=== PATIENT | female | born 1945 | race Caucasian/White ===

== ENCOUNTER 2017-11-06 05:57 | Inpatient (IN) | payer MEDICARE, MEDICAID ==
[2017-10-31 16:02] LABS: BASOPHILS # (AUTO) 0.1 X10'3 (0-0.2); BASOPHILS % (AUTO) 0.5 % (0-1); EOSINOPHILS # (AUTO) 0.6 X10'3 (0-0.9); EOSINOPHILS % (AUTO) 6.2 % (0-6); LYMPHOCYTES # (AUTO) 2.2 X10'3 (1.1-4.8); LYMPHOCYTES % (AUTO) 23.9 % (21-51); MEAN CORPUSCULAR HEMOGLOBIN 28.8 PG (27.0-31.0); MEAN CORPUSCULAR HGB CONC 32.8 % (33.0-36.5); MEAN CORPUSCULAR VOLUME 87.8 FL (78-98); MEAN PLATELET VOLUME 7.9 FL (7.4-10.4); MONOCYTES # (AUTO) 0.6 X10'3 (0-0.9); MONOCYTES % (AUTO) 6.1 % (2-12); NEUTROPHILS # (AUTO) 5.8 X10'3 (1.8-7.7); NEUTROPHILS % (AUTO) 63.3 % (42-75); PRE OP HEMATOCRIT 41.5 % (35.0-45.0); PRE OP HEMOGLOBIN 13.6 g/dL (12.0-16.0); PRE OP PLATELET COUNT 206 X10'3 (140-440); RED BLOOD COUNT 4.73 X10'6 (4.20-5.60); RED CELL DISTRIBUTION WIDTH 13.2 % (11.5-14.5)
[2017-10-31 16:16] LABS: PRE OP PROTIME 33.9 SECONDS (9.0-12.0)
[2017-10-31 16:18] LABS: ALBUMIN 3.6 G/DL (3.4-5.0); ALKALINE PHOSPHATASE 46 IU/L (46-116); BLOOD UREA NITROGEN 15 MG/DL (7-18); BUN/CREATININE RATIO 10.7 (6.6-38.0); CALCIUM 8.8 MG/DL (8.5-10.1); CHLORIDE 109 MMOL/L (99-107); PRE OP ALT 20 U/L (30-65); PRE OP ANION GAP 10 (8-16); PRE OP AST 23 U/L (10-37); PRE OP BILIRUB, TOTAL 0.3 MG/DL (0.0-1.0); PRE OP GLUCOSE 83 MG/DL (70-104); PRE OP POTASSIUM 3.6 MMOL/L (3.4-5.1); PRE OP SODIUM 144 MMOL/L (135-145); TOTAL CARBON DIOXIDE 25.1 MMOL/L (24-32); TOTAL PROTEIN 7.1 G/DL (6.4-8.2); eGFR 37 ML/MIN
[2017-10-31 16:18] LABS: CLARITY,URINE CLEAR (Clear); GLUCOSE, URINE NEGATIVE (Neg); KETONES,URINE NEGATIVE (Neg); LEUKOCYTE ESTERASE ,URINE MODERATE (Neg); NITRITES, URINE NEGATIVE (Neg); OCCULT BLOOD,URINE SMALL (Neg); PH,URINE 6.5 (4.8-8.0); PROTEIN,URINE NEGATIVE (Neg); UROBILINOGEN,URINE 0.2 E.U/dL (0.2-1.0)
[2017-10-31 16:23] LABS: COLOR,URINE STRAW (Yellow)
[2017-10-31 16:25] LABS: UA COLLECTION TYPE CLN CATCH MIDSTREAM
[2017-10-31 16:34] LABS: PRE OP INR 3.4 INR
[2017-10-31 16:37] LABS: BACTERIA,URINE NONE SEEN /HPF (Neg); SQUAMOUS EPITHELIAL CELL,UR FEW /LPF (FEW)
[2017-11-06] VITALS (22 sets, daily range): BP systolic 90–129; BP diastolic 43–68
[~2017-11-06] VITALS: Ht 167.6 cm; Wt 69.8 kg
[~2017-11-06 05:57] MED LIST: DABI150C PO; DRON400T2 PO; LEVO50TA8 PO; ROSU10TA PO; TAMO20TA4 PO; acetaminophen 325mg tablet PO ONE; ceFAZolin 2gm in dextrose, iso 100 ML IV ONE; celeCOXIB 100mg capsule PO ONE; famotidine 20mg tablet PO ONE; gabapentin 300mg capsule PO ONE; metoclopramide 5 mg/ml inj IV ONE; ringers solution, lacted 1,000 ML IV SCH; vancomycin inj 1,500 MG in normal saline 300ml IV soln IV ONE
[2017-11-06] MEDS ORDERED: LIDOcaine 1% (10mg/ml) 2ml vial ONE (06:24)
[2017-11-06] MEDS ORDERED: vancomycin 1,000mg inj ONE (07:16)
[2017-11-06] MEDS ORDERED: ceFAZolin 1000mg inj ONE (07:16)
[2017-11-06 07:27] LABS: INR 0.9 INR; PARTIAL THROMBOPLASTIN TIME 24 SECONDS (22-32); PROTHROMBIN TIME 9.6 SECONDS (9.0-12.0)
[2017-11-06] MEDS ORDERED: cloNIDine hcl/PF 100mcg/ml inj ONE (07:38)
[2017-11-06] MEDS ORDERED: MORPHINE SULFATE/PF 0.5 MG/ML 10ML AMPUL ONE (07:57)
[2017-11-06] MEDS ORDERED: MIDAZolam 1mg/ml 10ml vial ONE (07:57)
[2017-11-06] MEDS ORDERED: naloxone 2mg/2ml inj 1.4 MG in normal saline 500ml IV soln 500 ML IV PRN (08:54)
[2017-11-06] MEDS ORDERED: ringers solution, lacted 1,000 ML IV SCH (08:54)
[2017-11-06] MEDS ORDERED: proCHLORperazine 10 MG/2 ml inj IV PRN (08:55)
[2017-11-06] MEDS ORDERED: meperidine/PF 25mg/ml syringe IV ONE (08:55)
[2017-11-06] MEDS ORDERED: morphine 2 MG/ML inj. syringe IV PRN (08:55)
[2017-11-06] MEDS ORDERED: ondansetron/PF 4mg/2ml inj IV PRN ×3 (08:55→09:50)
[2017-11-06] MEDS ORDERED: meperidine/PF 25mg/ml syringe IV PRN ×2 (08:55)
[2017-11-06] MEDS ORDERED: diphenhydrAMINE 50 mg/ml inj IV PRN (08:55)
[2017-11-06] MEDS ORDERED: propofol inj 20 ML IV ONE (09:04)
[2017-11-06] MEDS ORDERED: epiNEPHrine 1 mg/ml inj ONE (09:04)
[2017-11-06] MEDS ORDERED: ePHEDrine 50MG/ML INJ. ONE (09:22)
[2017-11-06] MEDS ORDERED: acetaminophen 325mg tablet PO PRN (09:50)
[2017-11-06] MEDS ORDERED: magnesium hydroxide 30ml (MOM) UD suspension PO PRN (09:50)
[2017-11-06] MEDS ORDERED: oxyCODONE IR 5mg (immed. release) tablet PO PRN (09:50)
[2017-11-06] MEDS ORDERED: bisacodyl 10mg suppository rectal RC PRN (09:50)
[2017-11-06] MEDS ORDERED: dexamethasone sod phosphate 4mg/ml inj. ONE (09:55)
[2017-11-06] MEDS: acetaminophen 325mg tablet PO SCH ×2 (14:28→20:57)
[2017-11-06] MEDS: potassium cl 20mEq in 1/2 NS 1,000 ML IV SCH ×2 (14:29→17:49)
[2017-11-06] MEDS: gabapentin 300mg capsule PO SCH ×2 (14:29→20:58)
[2017-11-06] MEDS: ketorolac tromethamine 15mg/ml inj. IV SCH ×2 (14:29→20:58)
[2017-11-06] MEDS: cefazolin 1gm/NS 100mL 100 ML IV SCH (17:32)
[2017-11-06] MEDS ORDERED: vancomycin/NS 1 GM ADD-VANTAGE 250 ML IV SCH (20:00)
[2017-11-06] MEDS: sennosides 8.6mg tablet PO SCH (20:58)
[2017-11-06] MEDS: atorvastatin 20mg tablet PO SCH (20:58)
[2017-11-07] MEDS: cefazolin 1gm/NS 100mL 100 ML IV SCH (00:33)
[2017-11-07] MEDS: potassium cl 20mEq in 1/2 NS 1,000 ML IV SCH ×3 (01:49→16:14)
[2017-11-07] MEDS: ketorolac tromethamine 15mg/ml inj. IV SCH ×4 (02:15→20:10)
[2017-11-07] MEDS: acetaminophen 325mg tablet PO SCH ×4 (02:15→20:44)
[2017-11-07 02:30] VITALS: BP_SYST 112; BP_DIAS 58; BP_DIAS 71
[2017-11-07] MEDS: oxyCODONE IR 5mg (immed. release) tablet PO PRN (05:39)
[2017-11-07 06:00] VITALS: BP 96/44
[2017-11-07 06:21] LABS: BASOPHILS % (AUTO) 0 % (0-1); EOSINOPHILS # (AUTO) 0.2 X10'3 (0-0.9); EOSINOPHILS % (AUTO) 1.6 % (0-6); HEMATOCRIT 29.7 % (35.0-45.0); HEMOGLOBIN 10.3 g/dl (12.0-16.0); LYMPHOCYTES # (AUTO) 0.6 X10'3 (1.1-4.8); LYMPHOCYTES % (AUTO) 5.1 % (21-51); MEAN CORPUSCULAR HEMOGLOBIN 29.9 PG (27.0-31.0); MEAN CORPUSCULAR HGB CONC 34.6 % (33.0-36.5); MEAN CORPUSCULAR VOLUME 86.3 FL (78-98); MEAN PLATELET VOLUME 7.9 FL (7.4-10.4); MONOCYTES # (AUTO) 0.6 X10'3 (0-0.9); MONOCYTES % (AUTO) 5.4 % (2-12); NEUTROPHILS # (AUTO) 9.9 X10'3 (1.8-7.7); NEUTROPHILS % (AUTO) 87.9 % (42-75); PLATELET COUNT 138 X10'3 (140-440); RED BLOOD COUNT 3.44 X10'6 (4.20-5.60); RED CELL DISTRIBUTION WIDTH 12.8 % (11.5-14.5); WHITE BLOOD COUNT 11.3 X10'3 (4.5-11.0)
[2017-11-07 06:53] LABS: ANION GAP 7 (8-16); CHLORIDE 105 MMOL/L (99-107); POTASSIUM 5.1 MMOL/L (3.5-5.1); SODIUM 133 MMOL/L (135-145); TOTAL CARBON DIOXIDE 21.2 MMOL/L (24-32)
[2017-11-07] MEDS: enoxaparin 40mg/0.4ml syringe SQ SCH (08:16)
[2017-11-07] MEDS: levoTHYROXINE 25mcg tablet PO SCH (08:18)
[2017-11-07] MEDS: gabapentin 300mg capsule PO SCH ×3 (08:18→20:11)
[2017-11-07] MEDS: tamoxifen 10mg tablet PO SCH (08:20)
[2017-11-07 10:00] VITALS: BP 104/57
[2017-11-07] MEDS: dronedarone hcl 400mg tablet PO SCH ×2 (11:52→20:10)
[2017-11-07 14:00] VITALS: BP 96/57
[2017-11-07 18:00] VITALS: BP 114/42
[2017-11-07] MEDS ORDERED: dronedarone hcl 400mg tablet PO SCH (20:00)
[2017-11-07] MEDS: sennosides 8.6mg tablet PO SCH (20:11)
[2017-11-07] MEDS: atorvastatin 20mg tablet PO SCH (20:11)
[2017-11-07 22:00] VITALS: BP 128/45
[2017-11-08] MEDS: potassium cl 20mEq in 1/2 NS 1,000 ML IV SCH (01:49)
[2017-11-08] MEDS: acetaminophen 325mg tablet PO SCH ×2 (02:20→08:06)
[2017-11-08 06:00] VITALS: BP 110/46
[2017-11-08 06:31] LABS: BASOPHILS % (AUTO) 0.2 % (0-1); EOSINOPHILS # (AUTO) 0.1 X10'3 (0-0.9); EOSINOPHILS % (AUTO) 0.8 % (0-6); HEMATOCRIT 27.5 % (35.0-45.0); HEMOGLOBIN 9.5 g/dl (12.0-16.0); LYMPHOCYTES # (AUTO) 0.9 X10'3 (1.1-4.8); LYMPHOCYTES % (AUTO) 7.9 % (21-51); MEAN CORPUSCULAR HEMOGLOBIN 29.8 PG (27.0-31.0); MEAN CORPUSCULAR HGB CONC 34.6 % (33.0-36.5); MEAN CORPUSCULAR VOLUME 85.9 FL (78-98); MEAN PLATELET VOLUME 8.4 FL (7.4-10.4); MONOCYTES # (AUTO) 0.7 X10'3 (0-0.9); MONOCYTES % (AUTO) 5.9 % (2-12); NEUTROPHILS # (AUTO) 9.9 X10'3 (1.8-7.7); NEUTROPHILS % (AUTO) 85.2 % (42-75); PLATELET COUNT 127 X10'3 (140-440); RED CELL DISTRIBUTION WIDTH 13.1 % (11.5-14.5); WHITE BLOOD COUNT 11.6 X10'3 (4.5-11.0)
[2017-11-08] MEDS: gabapentin 300mg capsule PO SCH ×3 (08:05→20:51)
[2017-11-08] MEDS: levoTHYROXINE 25mcg tablet PO SCH (08:05)
[2017-11-08] MEDS: dronedarone hcl 400mg tablet PO SCH ×2 (08:05→20:50)
[2017-11-08] MEDS: enoxaparin 40mg/0.4ml syringe SQ SCH (08:06)
[2017-11-08] MEDS: tamoxifen 10mg tablet PO SCH (08:07)
[2017-11-08] MEDS: celeCOXIB 100mg capsule PO SCH ×2 (08:07→20:51)
[2017-11-08] MEDS ORDERED: acetaminophen 325mg tablet PO PRN (09:50)
[2017-11-08 10:57] VITALS: BP 111/38
[2017-11-08] MEDS: oxyCODONE IR 5mg (immed. release) tablet PO PRN (12:32)
[2017-11-08 18:00] VITALS: BP 149/59
[2017-11-08] MEDS: sennosides 8.6mg tablet PO SCH (20:51)
[2017-11-08] MEDS: atorvastatin 20mg tablet PO SCH (20:51)
[2017-11-08 22:00] VITALS: BP 145/61
[2017-11-08] MEDS: HYDROcodone/acetaminophen 5mg/325mg tablet PO PRN (22:44)
[2017-11-09] MEDS: HYDROcodone/acetaminophen 5mg/325mg tablet PO PRN ×2 (05:26→11:02)
[2017-11-09 06:00] VITALS: BP 143/61
[2017-11-09 06:39] LABS: BASOPHILS % (AUTO) 0.2 % (0-1); EOSINOPHILS # (AUTO) 0.3 X10'3 (0-0.9); EOSINOPHILS % (AUTO) 2.8 % (0-6); HEMATOCRIT 28.7 % (35.0-45.0); HEMOGLOBIN 9.7 g/dl (12.0-16.0); LYMPHOCYTES % (AUTO) 10.3 % (21-51); MEAN CORPUSCULAR HEMOGLOBIN 29.2 PG (27.0-31.0); MEAN CORPUSCULAR HGB CONC 33.7 % (33.0-36.5); MEAN CORPUSCULAR VOLUME 86.7 FL (78-98); MEAN PLATELET VOLUME 8.4 FL (7.4-10.4); MONOCYTES # (AUTO) 0.6 X10'3 (0-0.9); NEUTROPHILS # (AUTO) 8.2 X10'3 (1.8-7.7); NEUTROPHILS % (AUTO) 80.7 % (42-75); PLATELET COUNT 131 X10'3 (140-440); RED BLOOD COUNT 3.31 X10'6 (4.20-5.60); RED CELL DISTRIBUTION WIDTH 13.2 % (11.5-14.5); WHITE BLOOD COUNT 10.1 X10'3 (4.5-11.0)
[2017-11-09] MEDS: gabapentin 300mg capsule PO SCH (08:00)
[2017-11-09] MEDS: levoTHYROXINE 25mcg tablet PO SCH (08:11)
[2017-11-09] MEDS: celeCOXIB 100mg capsule PO SCH (08:11)
[2017-11-09] MEDS: dronedarone hcl 400mg tablet PO SCH (08:11)
[2017-11-09] MEDS: tamoxifen 10mg tablet PO SCH (08:12)
[2017-11-09] MEDS: enoxaparin 40mg/0.4ml syringe SQ SCH (08:12)
[2017-11-09] MEDS ORDERED: ENOX40DI11 SQ (10:04)
[2017-11-09 10:40] VITALS: BP 129/52
== END 2017-11-09 11:05 | disposition home health service (06) | DRG 470 ==
LOC: PAS IN 05:57 → EDSTATUS 07:30 → ORTHO 4S 12:19
PROVIDERS: ADMIT Orthopaedic Surgery; ATTEND Orthopaedic Surgery
PROC: 0SR906A Replacement of Right Hip Joint with Oxidized Zirconium on Polyethylene Synthetic Substitute, Uncemented, Open Approach (ICD-10-PCS; principal; 2017-11-06 07:50)
DX: M16.11 Unilateral primary osteoarthritis, right hip (principal); I48.2 Chronic atrial fibrillation; E87.1 Hypo-osmolality and hyponatremia; D62 Acute posthemorrhagic anemia; I10 Essential (primary) hypertension; E78.5 Hyperlipidemia, unspecified; I25.10 Atherosclerotic heart disease of native coronary artery without angina pectoris; Z88.8 Allergy status to other drugs, medicaments and biological substances; Z79.899 Other long term (current) drug therapy; Z79.01 Long term (current) use of anticoagulants; Z85.3 Personal history of malignant neoplasm of breast; Z71.3 Dietary counseling and surveillance
CPT/HCPCS: 36415; 72170; 80051; 80053; 81001; 85025; 85610; 85730; 86885; 86900; 86901; 87070; 87088; 97110; 97116; 97161; 97530; A6255; A6449; A7000; C1758; C1776; C9250; J0171; J0690; J0735; J1100; J1650; J1885; J2250; J2274; J2704; J2765; J3370; J3490; J7030; J7120

== ENCOUNTER 2021-02-17 15:36 | Emergency (ER) | payer MEDICARE, MEDICAID ==
[~2021-02-17] VITALS: Ht 167.6 cm; Wt 72.7 kg
[~2021-02-17 15:36] MED LIST changes: -DABI150C PO; -DRON400T2 PO; +DRON400T7 PO; +ENOX40DI11 SQ; -ROSU10TA PO; +ROSU10TA2 PO; -acetaminophen 325mg tablet PO ONE; -ceFAZolin 2gm in dextrose, iso 100 ML IV ONE; -celeCOXIB 100mg capsule PO ONE; -famotidine 20mg tablet PO ONE; -gabapentin 300mg capsule PO ONE; -metoclopramide 5 mg/ml inj IV ONE; -ringers solution, lacted 1,000 ML IV SCH; -vancomycin inj 1,500 MG in normal saline 300ml IV soln IV ONE
[2021-02-17] MEDS ORDERED: TETanus/Pertussis (Acell)/Diphther VAC/PF (Tdap-Adult) 0.5ml syringe IMVAC ONE (17:00)
[2021-02-17] MEDS ORDERED: LIDOcaine 1% 30ml preserv. free vial IJ ONE (17:00)
--- NOTE | 2021-02-17 18:26 | NUR ---
Pt was being discharged. RBN was going to walk pt to lobby. Pt made it to the door of the room and started to go down. RN caught pt by the axillary and called for help. Pt assisted back to otto. VS taken 114/48, 68, 20, 98% RA. Pt a litle clammy. Feeling better now.
--- NOTE | 2021-02-17 19:00 | NUR ---
Pt in bed, calm, denies pain. at rest BP going from 82/47 to 119/53. JAD Bautista notified. 1L NS ordered. Pt denies dizziness and pain. Continue monitoring closely
[2021-02-17] MEDS ORDERED: normal saline 1000ml 1,000 ML IV ONE (19:05)
[2021-02-17 19:24] LABS: BASOPHILS # (AUTO) 0.1 X10'3 (0-0.2); BASOPHILS % (AUTO) 0.6 % (0-1); EOSINOPHILS # (AUTO) 0.2 X10'3 (0-0.9); EOSINOPHILS % (AUTO) 1.3 % (0-6); HEMATOCRIT 37.5 % (35.0-45.0); HEMOGLOBIN 12.2 g/dl (12.0-16.0); LYMPHOCYTES # (AUTO) 1.4 X10'3 (1.1-4.8); LYMPHOCYTES % (AUTO) 10.5 % (21-51); MEAN CORPUSCULAR HEMOGLOBIN 27.3 PG (27.0-31.0); MEAN CORPUSCULAR HGB CONC 32.6 g/dL (33.0-36.5); MEAN CORPUSCULAR VOLUME 83.6 FL (78-98); MEAN PLATELET VOLUME 7.8 FL (7.4-10.4); MONOCYTES # (AUTO) 0.5 X10'3 (0-0.9); MONOCYTES % (AUTO) 4.1 % (2-12); NEUTROPHILS # (AUTO) 11.2 X10'3 (1.8-7.7); NEUTROPHILS % (AUTO) 83.5 % (42-75); PLATELET COUNT 217 X10'3 (140-440); RED BLOOD COUNT 4.48 X10'6 (4.20-5.60); RED CELL DISTRIBUTION WIDTH 14.9 % (11.5-14.5); WHITE BLOOD COUNT 13.4 X10'3 (4.5-11.0)
[2021-02-17 20:16] VITALS: BP 141/56
== END 2021-02-17 20:20 | disposition home or self-care (01) ==
LOC: ER 15:36
DX: S61.411A Laceration without foreign body of right hand, initial encounter (principal); M25.521 Pain in right elbow; E78.00 Pure hypercholesterolemia, unspecified; I10 Essential (primary) hypertension; F41.9 Anxiety disorder, unspecified; Z72.89 Other problems related to lifestyle; Z88.8 Allergy status to other drugs, medicaments and biological substances; Z88.5 Allergy status to narcotic agent; Z79.899 Other long term (current) drug therapy; W01.0XXA Fall on same level from slipping, tripping and stumbling without subsequent striking against object, initial encounter; Y93.89 Activity, other specified; Y92.89 Other specified places as the place of occurrence of the external cause; Y99.8 Other external cause status
CPT/HCPCS: 12002; 36415; 73080; 73090; 73110; 73130; 85025; 90471; 90715; 96360; 99285; J7030; 96361; 96374

== ENCOUNTER 2022-03-08 10:14 | Observation (INO) | payer MEDICARE, MEDICAID ==
[~2022-03-08] VITALS: Ht 167.6 cm; Wt 66.2 kg
[2022-03-08 11:05] LABS: BASOPHILS # (AUTO) 0.1 X10'3 (0-0.2); BASOPHILS % (AUTO) 1.3 % (0-1); EOSINOPHILS # (AUTO) 0.2 X10'3 (0-0.9); EOSINOPHILS % (AUTO) 2.9 % (0-6); HEMATOCRIT 23.6 % (35.0-45.0); HEMOGLOBIN 7.2 g/dl (12.0-16.0); LYMPHOCYTES # (AUTO) 1.8 X10'3 (1.1-4.8); MEAN CORPUSCULAR HEMOGLOBIN 19.8 PG (27.0-31.0); MEAN CORPUSCULAR HGB CONC 30.3 g/dL (33.0-36.5); MEAN CORPUSCULAR VOLUME 65.4 FL (78-98); MEAN PLATELET VOLUME 7.5 FL (7.4-10.4); MONOCYTES # (AUTO) 0.4 X10'3 (0-0.9); MONOCYTES % (AUTO) 5.5 % (2-12); NEUTROPHILS # (AUTO) 4.9 X10'3 (1.8-7.7); NEUTROPHILS % (AUTO) 66.3 % (42-75); PLATELET COUNT 412 X10'3 (140-440); RED BLOOD COUNT 3.62 X10'6 (4.20-5.60); RED CELL DISTRIBUTION WIDTH 18.6 % (11.5-14.5); WHITE BLOOD COUNT 7.4 X10'3 (4.5-11.0)
[2022-03-08 11:21] LABS: PLATELET ESTIMATE NORMAL
[2022-03-08 11:22] LABS: ANISOCYTOSIS 2+; ELLIPTOCYTES 1+; MICROCYTOSIS 2+
[2022-03-08 11:23] LABS: ACANTHOCYTES 1+; HYPOCHROMASIA 1+
[2022-03-08 11:41] LABS: ALANINE AMINOTRANSFERASE 11 U/L (12-78); ALBUMIN 3.4 G/DL (3.4-5.0); ALKALINE PHOSPHATASE 28 IU/L (46-116); ANION GAP 9 (8-16); ASPARTATE AMINO TRANSFERASE 19 U/L (10-37); BILIRUBIN,TOTAL 0.5 MG/DL (0.1-1.0); BLOOD UREA NITROGEN 17 MG/DL (7-18); BUN/CREATININE RATIO 10.1 (6.6-38.0); CALCIUM 8.4 MG/DL (8.5-10.1); CHLORIDE 105 MMOL/L (99-107); CREATININE 1.68 MG/DL (0.40-0.90); GLUCOSE 91 MG/DL (70-104); POTASSIUM 4.1 MMOL/L (3.5-5.1); SODIUM 137 MMOL/L (135-145); TOTAL CARBON DIOXIDE 22.9 MMOL/L (24-32); TOTAL PROTEIN 6.7 G/DL (6.4-8.2); eGFR 29 ML/MIN
[2022-03-08] MEDS ORDERED: mag hydrox/Alum hydrox/simeth 30ml oral suspension PO PRN (12:50)
[2022-03-08] MEDS ORDERED: potassium CL 10mEq/100ml bag 100 ML IV PRN (12:50)
[2022-03-08] MEDS ORDERED: normal saline 1000ml 1,000 ML IV SCH (12:50)
[2022-03-08] MEDS ORDERED: acetaminophen 325mg tablet PO PRN (12:50)
[2022-03-08] MEDS ORDERED: ondansetron/PF 4mg/2ml inj IV PRN (12:50)
[2022-03-08] MEDS ORDERED: magnesium Cl slow-release 64mg tablet PO PRN (12:50)
[2022-03-08] MEDS ORDERED: magnesium 2GM in 50ml NS 50 ML IV PRN (12:50)
[2022-03-08] MEDS ORDERED: POTASSIUM BICARB 20meq eff tab 20 MEQ TABLET.EFF PO PRN ×2 (12:50)
[2022-03-08] MEDS ORDERED: magnesium hydroxide 30ml (MOM) UD suspension PO PRN (12:50)
[2022-03-08 13:35] LABS: MAGNESIUM 2.3 MG/DL (1.5-2.4)
[2022-03-08] MEDS ORDERED: AZIT-83 PO (14:02)
[2022-03-08] MEDS ORDERED: DRON400T6 PO (14:04)
[2022-03-08] MEDS ORDERED: ESTR42.510 VG (14:04)
[2022-03-08] MEDS ORDERED: DABI150C PO (14:04)
--- NOTE | 2022-03-08 14:45 | NUR ---
dr. martins called to clarify plan of care. Per Dr. Martins patient needs one unit transfusion.
[2022-03-08 15:32] LABS: % IRON SATURATION 3 % (11-46); IRON 14 UG/DL (49-151); TOTAL IRON BINDING CAPACITY 436 UG/DL (259-388)
[2022-03-08 15:43] VITALS: BP 148/51
[2022-03-08 18:56] VITALS: BP 118/54
[2022-03-08 19:20] VITALS: BP 160/59
[2022-03-08 19:51] VITALS: BP 174/69
[2022-03-08] MEDS: docusate sod 100mg capsule PO SCH (20:00)
[2022-03-08] MEDS: K and/or MAG REPLACEMENT MC SCH (20:00)
[2022-03-08 20:24] VITALS: BP 181/67
[2022-03-09 02:19] LABS: BASOPHILS # (AUTO) 0.1 X10'3 (0-0.2); BASOPHILS % (AUTO) 1.1 % (0-1); EOSINOPHILS # (AUTO) 0.2 X10'3 (0-0.9); EOSINOPHILS % (AUTO) 1.8 % (0-6); HEMATOCRIT 29.3 % (35.0-45.0); HEMOGLOBIN 9.6 g/dl (12.0-16.0); LYMPHOCYTES % (AUTO) 10.4 % (21-51); MEAN CORPUSCULAR HEMOGLOBIN 23.3 PG (27.0-31.0); MEAN CORPUSCULAR HGB CONC 32.7 g/dL (33.0-36.5); MEAN CORPUSCULAR VOLUME 71.2 FL (78-98); MEAN PLATELET VOLUME 7.2 FL (7.4-10.4); MONOCYTES # (AUTO) 0.5 X10'3 (0-0.9); MONOCYTES % (AUTO) 5.7 % (2-12); NEUTROPHILS # (AUTO) 7.4 X10'3 (1.8-7.7); PLATELET COUNT 324 X10'3 (140-440); RED BLOOD COUNT 4.11 X10'6 (4.20-5.60); RED CELL DISTRIBUTION WIDTH 22.1 % (11.5-14.5); WHITE BLOOD COUNT 9.2 X10'3 (4.5-11.0)
[2022-03-09 02:36] LABS: MAGNESIUM 2.1 MG/DL (1.5-2.4); POTASSIUM 4.1 MMOL/L (3.5-5.1)
[2022-03-09 04:17] LABS: OCCULT BLOOD STOOL NEGATIVE (Neg)
[2022-03-09] MEDS: K and/or MAG REPLACEMENT MC SCH (07:43)
[2022-03-09] MEDS: docusate sod 100mg capsule PO SCH (08:00)
--- NOTE | 2022-03-09 08:53 | NUR ---
PT TRANSFERED TO GI LAB, AWAITING IPA
[2022-03-09 09:00] VITALS: BP 153/64
--- NOTE | 2022-03-09 09:00 | NUR ---
RECEIVED PATIENT FROM ED. PATIENT A/O X3. NO C/O PAIN OR DISCOMFORT.
--- NOTE | 2022-03-09 11:12 | NUR ---
DISCHARGED TO PATIENT'S CAR VIA WC. DC INSTRUCTIONS GIVEN.
--- NOTE | 2022-03-21 14:52 | NUR ---
Case Management DC follow up:Left message on patient's answering machine ,with name, number, and reason for call.
== END 2022-03-09 11:31 | disposition home or self-care (01) ==
LOC: ER 10:14 → ED HOLD 12:52
PROVIDERS: ADMIT Internal Medicine; ATTEND Internal Medicine
DX: D64.9 Anemia, unspecified (principal); D68.59 Other primary thrombophilia; R53.1 Weakness; I10 Essential (primary) hypertension; I48.0 Paroxysmal atrial fibrillation; E78.00 Pure hypercholesterolemia, unspecified; F41.9 Anxiety disorder, unspecified; Z79.01 Long term (current) use of anticoagulants; Z96.641 Presence of right artificial hip joint; Z79.899 Other long term (current) drug therapy
CPT/HCPCS: 36415; 36430; 71045; 80053; 82272; 83540; 83550; 83735; 84132; 85008; 85025; 85610; 86885; 86900; 86901; 86920; 87081; 96360; 96361; 99291; G0378; J7030; P9016

== ENCOUNTER 2023-01-31 18:13 | Inpatient (IN) | payer MEDICARE, MEDICAID ==
[~2023-01-31] VITALS: Ht 167.6 cm; Wt 65.0 kg
[~2023-01-31 18:13] MED LIST changes: +AZIT-83 PO; +DABI150C PO; -ENOX40DI11 SQ; +ESTR42.510 VG
[2023-01-31] MEDS ORDERED: pantoprazole 40mg IV 80 MG in normal saline 100ml IV soln 100 ML IV ONE (19:35)
[2023-01-31 19:46] LABS: BASOPHILS # (AUTO) 0.1 X10'3 (0-0.2); BASOPHILS % (AUTO) 0.9 % (0-1); EOSINOPHILS # (AUTO) 0.2 X10'3 (0-0.9); EOSINOPHILS % (AUTO) 1.8 % (0-6); HEMATOCRIT 22.1 % (35.0-45.0); LYMPHOCYTES # (AUTO) 1.4 X10'3 (1.1-4.8); LYMPHOCYTES % (AUTO) 14.8 % (21-51); MEAN CORPUSCULAR HEMOGLOBIN 25.2 PG (27.0-31.0); MEAN CORPUSCULAR HGB CONC 30.8 g/dL (33.0-36.5); MEAN CORPUSCULAR VOLUME 81.8 FL (78-98); MONOCYTES # (AUTO) 0.4 X10'3 (0-0.9); MONOCYTES % (AUTO) 4.2 % (2-12); NEUTROPHILS # (AUTO) 7.5 X10'3 (1.8-7.7); NEUTROPHILS % (AUTO) 78.3 % (42-75); PLATELET COUNT 241 X10'3 (140-440); RED BLOOD COUNT 2.71 X10'6 (4.20-5.60); RED CELL DISTRIBUTION WIDTH 19.3 % (11.5-14.5); WHITE BLOOD COUNT 9.5 X10'3 (4.5-11.0)
[2023-01-31 19:50] LABS: HEMOGLOBIN 6.8 g/dl (12.0-16.0)
[2023-01-31 19:57] LABS: ALBUMIN/GLOBULIN RATIO 1.1 (1.1-1.5); ALKALINE PHOSPHATASE 27 IU/L (46-116); ANION GAP 10 (8-16); ASPARTATE AMINO TRANSFERASE 18 U/L (10-37); BILIRUBIN,TOTAL 0.3 MG/DL (0.1-1.0); BLOOD UREA NITROGEN 29 MG/DL (7-18); BUN/CREATININE RATIO 16.1 (10.0-20.0); CALCIUM 7.9 MG/DL (8.5-10.1); CHLORIDE 108 MMOL/L (99-107); GLUCOSE 124 MG/DL (70-104); POTASSIUM 4.1 MMOL/L (3.5-5.1); SODIUM 137 MMOL/L (135-145); TOTAL CARBON DIOXIDE 18.7 MMOL/L (24-32); TOTAL PROTEIN 5.8 G/DL (6.4-8.2); eGFR 27 ML/MIN
[2023-01-31 20:09] LABS: APTT 58 SECONDS (22-32)
[2023-01-31 20:10] LABS: ALANINE AMINOTRANSFERASE < 6 U/L (12-78)
[2023-01-31 20:27] LABS: ELLIPTOCYTES 1+
[2023-01-31 20:28] LABS: ANISOCYTOSIS 2+; PLATELET ESTIMATE NORMAL
[2023-01-31 20:29] LABS: TEAR DROP CELLS FEW
[2023-01-31 20:30] LABS: ACANTHOCYTES FEW
[2023-01-31 20:54] VITALS: BP 133/40
[2023-01-31] MEDS ORDERED: temazepam 15mg capsule PO PRN (21:00)
[2023-01-31] MEDS ORDERED: CALC-1215 PO (21:06)
[2023-01-31] MEDS ORDERED: MAGN400C PO (21:09)
[2023-01-31] MEDS ORDERED: ASCO100031 PO (21:11)
[2023-01-31 21:12] VITALS: BP 145/47
[2023-01-31] MEDS ORDERED: mag hydrox/Alum hydrox/simeth 30ml oral suspension PO PRN (21:40)
[2023-01-31] MEDS ORDERED: ondansetron 4mg rapidly disintigrating tab PO PRN (21:40)
[2023-01-31] MEDS ORDERED: ondansetron/PF 4mg/2ml inj IV PRN (21:40)
[2023-01-31] MEDS ORDERED: magnesium hydroxide 30ml (MOM) UD suspension PO PRN (21:40)
[2023-01-31] MEDS ORDERED: bisacodyl 10mg suppository rectal RC PRN (21:40)
[2023-01-31] MEDS ORDERED: diphenhydrAMINE 50 mg/ml inj IV PRN (21:40)
[2023-01-31] MEDS ORDERED: acetaminophen 650mg rectal suppository RC PRN (21:40)
[2023-01-31] MEDS ORDERED: diphenhydrAMINE 25mg capsule PO PRN (21:40)
[2023-01-31] MEDS ORDERED: acetaminophen 325mg tablet PO PRN ×2 (21:40)
[2023-01-31] MEDS ORDERED: IDARUCIZUMAB 2.5 GM/50 ML IV SCH (21:50)
[2023-01-31] MEDS ORDERED: tranexamic acid inj. 1,000 MG in normal saline 100ml IV soln 90 ML IV ONE (21:50)
[2023-01-31 22:13] LABS: CREATINE KINASE 61 U/L (26-192); LIPASE 71 U/L (73-393); MAGNESIUM 2.3 MG/DL (1.5-2.4); PHOSPHORUS 3.6 MG/DL (2.3-4.5)
[2023-01-31 22:34] VITALS: BP 139/45
[2023-01-31] MEDS ORDERED: KCENTRA PCC 500 UNIT/20 ML IV ONE (22:40)
[2023-01-31 23:08] LABS: CLARITY,URINE SLIGHTLY CLOUDY (Clear); COLOR,URINE YELLOW (Yellow); GLUCOSE, URINE NEGATIVE (Neg); KETONES,URINE NEGATIVE (Neg); LEUKOCYTE ESTERASE ,URINE SMALL (Neg); NITRITES, URINE NEGATIVE (Neg); OCCULT BLOOD,URINE TRACE-INTACT (Neg); PROTEIN,URINE NEGATIVE (Neg); UROBILINOGEN,URINE 0.2 E.U/dL (0.2-1.0)
[2023-01-31 23:11] LABS: HEMATOCRIT 24.1 % (35.0-45.0); HEMOGLOBIN 7.7 g/dl (12.0-16.0); MEAN CORPUSCULAR HEMOGLOBIN 26.3 PG (27.0-31.0); MEAN CORPUSCULAR HGB CONC 31.7 g/dL (33.0-36.5); MEAN CORPUSCULAR VOLUME 82.8 FL (78-98); MEAN PLATELET VOLUME 8.1 FL (7.4-10.4); PLATELET COUNT 214 X10'3 (140-440); RED BLOOD COUNT 2.91 X10'6 (4.20-5.60); WHITE BLOOD COUNT 9.2 X10'3 (4.5-11.0)
[2023-01-31] MEDS: normal saline 1000ml 1,000 ML IV SCH (23:20)
[2023-01-31 23:27] LABS: UA COLLECTION TYPE CLN CATCH MIDSTREAM
[2023-01-31 23:28] LABS: BACTERIA,URINE 1+ /HPF (Neg); MUCUS STRANDS MODERATE /LPF (Neg); RBC,URINE 0-2 /HPF (0-2); SQUAMOUS EPITHELIAL CELL,UR MODERATE /LPF (FEW); WBC CLUMPS,URINE FEW /HPF (NEGATIVE)
[2023-02-01] VITALS (7 sets, daily range): BP systolic 127–162; BP diastolic 32–60
--- NOTE | 2023-02-01 00:30 | NUR ---
Pt arrived to floor via a w/c and she transferred to bed without any difficulty.
[2023-02-01] MEDS: normal saline 1000ml 1,000 ML IV SCH (00:52)
[2023-02-01] MEDS: pantoprazole 40MG/NS 100ML BAG 100 ML IV SCH ×5 (01:08→22:56)
[2023-02-01] MEDS ORDERED: phytonadione inj. 1 MG in normal saline 100ml IV soln 100 ML IV ONE (05:35)
--- NOTE | 2023-02-01 06:21 | NUR ---
Problems reprioritized. Patient report given, questions answered & plan of care reviewed with Katiuska BRADY.
[2023-02-01 07:03] LABS: EOSINOPHILS # (AUTO) 0.2 X10'3 (0-0.9)
[2023-02-01 07:06] LABS: BASOPHILS # (AUTO) 0.1 X10'3 (0-0.2); BASOPHILS % (AUTO) 0.7 % (0-1); EOSINOPHILS % (AUTO) 2.2 % (0-6); HEMATOCRIT 23.9 % (35.0-45.0); HEMOGLOBIN 7.6 g/dl (12.0-16.0); LYMPHOCYTES # (AUTO) 2.2 X10'3 (1.1-4.8); LYMPHOCYTES % (AUTO) 23.3 % (21-51); MEAN CORPUSCULAR HEMOGLOBIN 26.6 PG (27.0-31.0); MEAN CORPUSCULAR VOLUME 83.2 FL (78-98); MEAN PLATELET VOLUME 8.4 FL (7.4-10.4); MONOCYTES # (AUTO) 0.5 X10'3 (0-0.9); MONOCYTES % (AUTO) 5.2 % (2-12); NEUTROPHILS # (AUTO) 6.5 X10'3 (1.8-7.7); NEUTROPHILS % (AUTO) 68.6 % (42-75); PLATELET COUNT 196 X10'3 (140-440); RED BLOOD COUNT 2.87 X10'6 (4.20-5.60); RED CELL DISTRIBUTION WIDTH 17.7 % (11.5-14.5); WHITE BLOOD COUNT 9.4 X10'3 (4.5-11.0)
[2023-02-01 07:17] LABS: ALANINE AMINOTRANSFERASE 9 U/L (12-78); ALBUMIN 2.6 G/DL (3.4-5.0); ALBUMIN/GLOBULIN RATIO 1.1 (1.1-1.5); ALKALINE PHOSPHATASE 23 IU/L (46-116); ANION GAP 11 (8-16); ASPARTATE AMINO TRANSFERASE 17 U/L (10-37); BILIRUBIN,TOTAL 0.8 MG/DL (0.1-1.0); BLOOD UREA NITROGEN 26 MG/DL (7-18); BUN/CREATININE RATIO 16.4 (10.0-20.0); CALCIUM 7.6 MG/DL (8.5-10.1); CHLORIDE 111 MMOL/L (99-107); CREATININE 1.59 MG/DL (0.40-0.90); GLUCOSE 89 MG/DL (70-104); POTASSIUM 3.8 MMOL/L (3.5-5.1); SODIUM 141 MMOL/L (135-145); TOTAL CARBON DIOXIDE 19.1 MMOL/L (24-32); eGFR 31 ML/MIN
[2023-02-01] MEDS: docusate sod 100mg capsule PO SCH ×2 (08:30→20:00)
[2023-02-01] MEDS: CefTRIAXone/D5W-Rocephin 1gm 50 ML IV SCH (08:30)
[2023-02-01] MEDS: levoTHYROXINE 25mcg tablet PO SCH (08:30)
[2023-02-01] MEDS: dronedarone hcl 400mg tablet PO SCH ×2 (08:31→20:01)
[2023-02-01] MEDS: tamoxifen 10mg tablet PO SCH (09:42)
--- NOTE | 2023-02-01 14:16 | NUR ---
promotional table spacer promotional table spacer Page Sent promotional table spacer PAGER ID: [phone] MESSAGE: Ruchi Quentin [id number] Patients INR from 01/31/23 was 5.5. GI wants to know if its ok to do EGD with high INR. Dinora [id number]
[2023-02-01] MEDS ORDERED: phytonadione inj. 3 MG in normal saline 100ml IV soln 100 ML IV ONE (14:35)
--- NOTE | 2023-02-01 18:00 | NUR ---
Patient in room ORTHO 4010. I have received report from Dinora BRADY and had the opportunity to ask questions and assume patient care.
--- NOTE | 2023-02-01 20:00 | NUR ---
Pt was moved from 4023b to 4010a this evening to better accomodate the pt. During my physical assessment at the beginning of the shift. I spoke with the patient about the plan for an EGD to be performed on 02/02/23 in the am.
[2023-02-02] VITALS (11 sets, daily range): BP systolic 120–170; BP diastolic 39–79
[2023-02-02] MEDS: normal saline 1000ml 1,000 ML IV SCH ×2 (00:20→14:31)
[2023-02-02] MEDS: pantoprazole 40MG/NS 100ML BAG 100 ML IV SCH ×4 (01:00→16:00)
--- NOTE | 2023-02-02 05:45 | NUR ---
Pt has been ambulating to the bathroom to void during the shift she has passed bloody clots into the toilet three times this shift
--- NOTE | 2023-02-02 05:54 | NUR ---
Problems reprioritized. Patient report given, questions answered & plan of care reviewed with Praveen BRADY.
[2023-02-02 07:26] LABS: BASOPHILS % (AUTO) 0.7 % (0-1); EOSINOPHILS # (AUTO) 0.3 X10'3 (0-0.9); EOSINOPHILS % (AUTO) 5.1 % (0-6); LYMPHOCYTES # (AUTO) 0.9 X10'3 (1.1-4.8); LYMPHOCYTES % (AUTO) 13.7 % (21-51); MEAN CORPUSCULAR HEMOGLOBIN 26.9 PG (27.0-31.0); MEAN CORPUSCULAR HGB CONC 32.2 g/dL (33.0-36.5); MEAN CORPUSCULAR VOLUME 83.4 FL (78-98); MONOCYTES # (AUTO) 0.4 X10'3 (0-0.9); MONOCYTES % (AUTO) 5.5 % (2-12); NEUTROPHILS # (AUTO) 4.8 X10'3 (1.8-7.7); PLATELET COUNT 185 X10'3 (140-440); RED BLOOD COUNT 2.54 X10'6 (4.20-5.60); RED CELL DISTRIBUTION WIDTH 18.2 % (11.5-14.5); WHITE BLOOD COUNT 6.4 X10'3 (4.5-11.0)
[2023-02-02 07:31] LABS: HEMATOCRIT 21.2 % (35.0-45.0); HEMOGLOBIN 6.8 g/dl (12.0-16.0)
[2023-02-02 07:33] LABS: APTT 32 SECONDS (22-32)
[2023-02-02 07:43] LABS: ALANINE AMINOTRANSFERASE 13 U/L (12-78); ALBUMIN 2.5 G/DL (3.4-5.0); ALKALINE PHOSPHATASE 24 IU/L (46-116); ANION GAP 13 (8-16); ASPARTATE AMINO TRANSFERASE 21 U/L (10-37); BILIRUBIN,TOTAL 0.5 MG/DL (0.1-1.0); BLOOD UREA NITROGEN 18 MG/DL (7-18); BUN/CREATININE RATIO 14.2 (10.0-20.0); CALCIUM 7.3 MG/DL (8.5-10.1); CHLORIDE 113 MMOL/L (99-107); CREATININE 1.27 MG/DL (0.40-0.90); GLUCOSE 68 MG/DL (70-104); POTASSIUM 3.9 MMOL/L (3.5-5.1); SODIUM 143 MMOL/L (135-145); TOTAL CARBON DIOXIDE 17.5 MMOL/L (24-32); TOTAL PROTEIN 4.9 G/DL (6.4-8.2); eGFR 41 ML/MIN
--- NOTE | 2023-02-02 07:45 | NUR ---
: RE" [facility] room 4010A H/H 6.8 21.[address] Tristan palmer
[2023-02-02] MEDS ORDERED: fentaNYL/PF 50MCG/1 ML 2ML syringe ONE (07:54)
[2023-02-02] MEDS ORDERED: LIDOcaine Viscous 15ml cup ONE (07:55)
[2023-02-02] MEDS ORDERED: MIDAZolam 1 MG/ML 5ML VIAL ONE (07:55)
[2023-02-02] MEDS: CefTRIAXone/D5W-Rocephin 1gm 50 ML IV SCH (08:00)
[2023-02-02 08:22] LABS: PLATELET ESTIMATE NORMAL
[2023-02-02 08:23] LABS: ANISOCYTOSIS 1+; ELLIPTOCYTES FEW; MICROCYTOSIS 1+; POIKILOCYTOSIS FEW
[2023-02-02] MEDS: docusate sod 100mg capsule PO SCH (12:44)
[2023-02-02] MEDS: dronedarone hcl 400mg tablet PO SCH (12:44)
[2023-02-02] MEDS: levoTHYROXINE 25mcg tablet PO SCH (12:44)
[2023-02-02] MEDS: tamoxifen 10mg tablet PO SCH (12:44)
[2023-02-02 15:39] LABS: HEMATOCRIT 28.2 % (35.0-45.0); MEAN CORPUSCULAR HEMOGLOBIN 27.9 PG (27.0-31.0); MEAN CORPUSCULAR VOLUME 87.2 FL (78-98); MEAN PLATELET VOLUME 7.8 FL (7.4-10.4); PLATELET COUNT 210 X10'3 (140-440); RED BLOOD COUNT 3.24 X10'6 (4.20-5.60); RED CELL DISTRIBUTION WIDTH 18.6 % (11.5-14.5); WHITE BLOOD COUNT 8.3 X10'3 (4.5-11.0)
[2023-02-02] MEDS ORDERED: ondansetron 4mg rapidly disintigrating tab PO PRN (15:40)
== END 2023-02-02 17:15 | disposition home or self-care (01) | DRG 377 ==
LOC: ER 18:13 → ED HOLD 21:45 → ORTHO 4S 02-01 00:30
PROVIDERS: ADMIT Family Medicine; ATTEND Family Medicine
PROC: 30233N1 Transfusion of Nonautologous Red Blood Cells into Peripheral Vein, Percutaneous Approach (ICD-10-PCS; 2023-01-31)
PROC: 30233K1 Transfusion of Nonautologous Frozen Plasma into Peripheral Vein, Percutaneous Approach (ICD-10-PCS; 2023-02-01)
PROC: 0DJ08ZZ Inspection of Upper Intestinal Tract, Via Natural or Artificial Opening Endoscopic (ICD-10-PCS; principal; 2023-02-02)
DX: K29.71 Gastritis, unspecified, with bleeding (principal); N17.0 Acute kidney failure with tubular necrosis; D62 Acute posthemorrhagic anemia; D68.32 Hemorrhagic disorder due to extrinsic circulating anticoagulants; D68.9 Coagulation defect, unspecified; E87.20 Acidosis, unspecified; I48.20 Chronic atrial fibrillation, unspecified; N39.0 Urinary tract infection, site not specified; I50.32 Chronic diastolic (congestive) heart failure; I13.0 Hypertensive heart and chronic kidney disease with heart failure and stage 1 through stage 4 chronic kidney disease, or unspecified chronic kidney disease; T45.515A Adverse effect of anticoagulants, initial encounter; F41.9 Anxiety disorder, unspecified; E03.9 Hypothyroidism, unspecified; E78.00 Pure hypercholesterolemia, unspecified; E86.1 Hypovolemia; J44.9 Chronic obstructive pulmonary disease, unspecified; N18.9 Chronic kidney disease, unspecified; Z79.01 Long term (current) use of anticoagulants; Z85.3 Personal history of malignant neoplasm of breast; Z87.891 Personal history of nicotine dependence; Z88.8 Allergy status to other drugs, medicaments and biological substances; Z88.5 Allergy status to narcotic agent; Z79.899 Other long term (current) drug therapy; Y92.89 Other specified places as the place of occurrence of the external cause
CPT/HCPCS: 36415; 36430; 43239; 71045; 80053; 81001; 82550; 83690; 83735; 83880; 84100; 84443; 85008; 85025; 85027; 85610; 85730; 86885; 86900; 86901; 86920; 87081; 87088; 88305; 93005; 99152; 99285; A4620; C9113; G0378; J0696; J2250; J3010; J3430; J3490; J7030; J7040; J7168; P9016; P9059

== ENCOUNTER 2023-02-26 10:30 | Day surgery (SDC) | payer MEDICARE, MEDICAID ==
[~2023-02-26] VITALS: Ht 167.6 cm; Wt 64.2 kg
[~2023-02-26 10:30] MED LIST changes: +ASCO100031 PO; -AZIT-83 PO; +CALC-1215 PO; +MAGN400C PO
[2023-02-26 10:50] VITALS: BP 167/68
[2023-02-26] MEDS ORDERED: estrogel TOP (11:05)
[2023-02-26] MEDS ORDERED: CALCIUM PO (11:05)
[2023-02-26] MEDS ORDERED: OMEG1CAP46 PO (11:05)
[2023-02-26] MEDS ORDERED: FERR134T2 PO (11:05)
[2023-02-26] MEDS ORDERED: FURO20TA4 PO (11:05)
[2023-02-26] MEDS ORDERED: MIDAZolam 1mg/ml 10ml vial IV ONE (11:20)
[2023-02-26] MEDS ORDERED: normal saline 1000ml 1,000 ML IV SCH (11:20)
[2023-02-26 15:21] VITALS: BP 161/88
== END 2023-02-26 13:00 | disposition home or self-care (01) ==
LOC: SSTAY O 10:30 → EDSTATUS 12:30 → SSTAY O 13:00
PROVIDERS: ATTEND Student in an Organized Health Care Education/Training Program
DX: I48.91 Unspecified atrial fibrillation (principal); Z53.8 Procedure and treatment not carried out for other reasons; Z88.8 Allergy status to other drugs, medicaments and biological substances; Z88.5 Allergy status to narcotic agent; Z88.4 Allergy status to anesthetic agent
CPT/HCPCS: A4620; J7030

== ENCOUNTER 2023-03-01 11:06 | Day surgery (SDC) | payer MEDICARE, MEDICAID ==
[~2023-03-01] VITALS: Ht 167.6 cm; Wt 63.0 kg
[2023-03-01] VITALS (15 sets, daily range): BP systolic 140–196; BP diastolic 42–72
[~2023-03-01 11:06] MED LIST changes: +CALCIUM PO; -ESTR42.510 VG; +FERR134T2 PO; +FURO20TA4 PO; +OMEG1CAP46 PO; +estrogel TOP
[2023-03-01] MEDS ORDERED: MIDAZolam 1mg/ml 10ml vial IV ONE (11:35)
[2023-03-01] MEDS ORDERED: fentaNYL/PF 50MCG/1 ML 2ML syringe IV ONE (11:35)
[2023-03-01] MEDS ORDERED: normal saline 1000ml 1,000 ML IV SCH (11:35)
== END 2023-03-01 14:00 | disposition home or self-care (01) ==
LOC: SSTAY O 11:06 → EDSTATUS 12:30 → SSTAY O 14:00
PROVIDERS: ATTEND Student in an Organized Health Care Education/Training Program
DX: I48.20 Chronic atrial fibrillation, unspecified (principal); I08.3 Combined rheumatic disorders of mitral, aortic and tricuspid valves; I25.10 Atherosclerotic heart disease of native coronary artery without angina pectoris; D64.9 Anemia, unspecified; I12.9 Hypertensive chronic kidney disease with stage 1 through stage 4 chronic kidney disease, or unspecified chronic kidney disease; N18.30 Chronic kidney disease, stage 3 unspecified; J43.9 Emphysema, unspecified; Z86.73 Personal history of transient ischemic attack (TIA), and cerebral infarction without residual deficits; Z79.899 Other long term (current) drug therapy
CPT/HCPCS: 93312; 93325; J2250; J3010; J7030; A4620

== ENCOUNTER 2023-03-05 08:29 | Outpatient (CLI) | payer MEDICARE, MEDICAID ==
[~2023-03-05 08:29] MED LIST changes: -CALCIUM PO; -FURO20TA4 PO
[2023-03-05 09:06] LABS: BASOPHILS # (AUTO) 0.1 X10'3 (0-0.2); BASOPHILS % (AUTO) 0.9 % (0-1); EOSINOPHILS # (AUTO) 0.4 X10'3 (0-0.9); EOSINOPHILS % (AUTO) 5.2 % (0-6); HEMATOCRIT 33.2 % (35.0-45.0); HEMOGLOBIN 10.7 g/dl (12.0-16.0); LYMPHOCYTES # (AUTO) 1.1 X10'3 (1.1-4.8); LYMPHOCYTES % (AUTO) 14.9 % (21-51); MEAN CORPUSCULAR HEMOGLOBIN 26.4 PG (27.0-31.0); MEAN CORPUSCULAR HGB CONC 32.2 g/dL (33.0-36.5); MEAN CORPUSCULAR VOLUME 82.2 FL (78-98); MEAN PLATELET VOLUME 7.9 FL (7.4-10.4); MONOCYTES # (AUTO) 0.4 X10'3 (0-0.9); MONOCYTES % (AUTO) 5.4 % (2-12); NEUTROPHILS # (AUTO) 5.6 X10'3 (1.8-7.7); NEUTROPHILS % (AUTO) 73.6 % (42-75); PLATELET COUNT 312 X10'3 (140-440); RED BLOOD COUNT 4.04 X10'6 (4.20-5.60); RED CELL DISTRIBUTION WIDTH 17.7 % (11.5-14.5); WHITE BLOOD COUNT 7.7 X10'3 (4.5-11.0)
[2023-03-05 09:19] LABS: ALANINE AMINOTRANSFERASE 11 U/L (12-78); ALBUMIN 3.7 G/DL (3.4-5.0); ALBUMIN/GLOBULIN RATIO 1.2 (1.1-1.5); ALKALINE PHOSPHATASE 37 IU/L (46-116); ASPARTATE AMINO TRANSFERASE 20 U/L (10-37); BILIRUBIN,TOTAL 0.5 MG/DL (0.1-1.0); BLOOD UREA NITROGEN 21 MG/DL (7-18); BUN/CREATININE RATIO 11.4 (10.0-20.0); CHLORIDE 105 MMOL/L (99-107); CREATININE 1.85 MG/DL (0.40-0.90); GLUCOSE 92 MG/DL (70-104); POTASSIUM 4.2 MMOL/L (3.5-5.1); TOTAL CARBON DIOXIDE 25.6 MMOL/L (24-32); TOTAL PROTEIN 6.9 G/DL (6.4-8.2); eGFR 26 ML/MIN
[2023-03-05 09:20] LABS: ANION GAP 7 (8-16); SODIUM 138 MMOL/L (135-145)
[2023-03-05] MEDS ORDERED: IODIXANOL 320 MG/ML INFUS..BTL 100ML IV ONE (10:34)
== END 2023-03-05 23:59 | disposition home or self-care (01) ==
LOC: RAD 08:29
PROVIDERS: ATTEND Student in an Organized Health Care Education/Training Program
DX: R91.1 Solitary pulmonary nodule (principal); I48.91 Unspecified atrial fibrillation; I48.92 Unspecified atrial flutter; J43.9 Emphysema, unspecified; K76.0 Fatty (change of) liver, not elsewhere classified; I25.10 Atherosclerotic heart disease of native coronary artery without angina pectoris; I70.0 Atherosclerosis of aorta
CPT/HCPCS: 36415; 75572; 80053; 85025; J3490; Q9967

== ENCOUNTER 2023-10-01 08:21 | Outpatient (CLI) | payer MEDICARE, MEDICAID ==
[2023-09-30 08:57] LABS: ALBUMIN 3.4 G/DL (3.4-5.0); ANION GAP 9 (8-16); BLOOD UREA NITROGEN 15 MG/DL (7-18); BUN/CREATININE RATIO 9.4 (10.0-20.0); CALCIUM 8.9 MG/DL (8.5-10.1); CHLORIDE 106 MMOL/L (99-107); CREATININE 1.59 MG/DL (0.40-0.90); GLUCOSE 117 MG/DL (70-104); SODIUM 137 MMOL/L (135-145); TOTAL CARBON DIOXIDE 22.3 MMOL/L (24-32); eGFR 31 ML/MIN
[2023-10-01] MEDS ORDERED: IODIXANOL 320 MG/ML INFUS..BTL 100ML IV ONE (09:26)
== END 2023-10-01 23:59 | disposition home or self-care (01) ==
LOC: RAD 08:21
PROVIDERS: ATTEND Nurse Practitioner
DX: Z95.818 Presence of other cardiac implants and grafts (principal)
CPT/HCPCS: 36415; 80048; J3490; Q9967